=== PATIENT | male | born 1975 | race Caucasian/White ===

== ENCOUNTER 2017-10-09 18:38 | Emergency (ER) | payer OTHER, SELFPAY ==
[2017-10-09 18:50] VITALS: BP 131/84; PULSE 78; RESP 15; TEMP 36.7; O2SAT 98
[2017-10-09 19:00] VITALS: BP 131/84; PULSE 78; RESP 15; TEMP 36.7; O2SAT 98; BMI 37.3
[2017-10-09] MEDS: TET,DIPH,PERTUSS(ACELL),VAC/PF 0.5 ML SYRINGE IM (19:27)
--- NOTE | 2017-10-09 19:27 | ED_ITS ---
HPI - Wound/Laceration <JIM Jacinto - Last Filed: 10/09/17 21:54> General Chief Complaint: Wound/Laceration Stated Complaint: GRILL FELL ON R HAND,LACERATION TO 3RD DIGIT Time Seen by Provider: 10/09/17 18:58 History of Present Illness HPI narrative: 42-year-old healthy male here for complaint of laceration to the right middle finger. He was at work when he accidentally caught himself on the grill causing a laceration. He denies any other injuries or concerns. Laceration is to the dorsal aspect of the right middle finger. He states his last tetanus was approximately 5 years ago. No other concerns or complaints Onset (ago): minute(s) Related Data Home Medications Medication Instructions Recorded Confirmed No Known Home Medications 10/09/17 10/09/17 Allergies Allergy/AdvReac Type Severity Reaction Status Date / Time No Known Drug Allergies Allergy Verified 10/09/17 18:59 Review of Systems <JIM Jacinto - Last Filed: 10/09/17 21:54> Constitutional Denies chills, Denies fever(s), Denies lethargy and Denies weakness Eyes Denies change in vision, Denies eye discharge, Denies irritation and Denies loss of vision ENT Ears, Nose, Mouth, and Throat: Denies change in voice, Denies neck pain and Denies sore throat Cardiovascular Denies chest pain, Denies irregular heart rhythm, Denies lightheadedness, Denies palpitations, Denies dyspnea, Denies dyspnea on exertion and Denies orthopnea Respiratory Denies cough, Denies dyspnea, Denies dyspnea on exertion and Denies wheezing Gastrointestinal Gastrointestinal: Denies abdominal pain, Denies change in bowel habits, Denies diarrhea, Denies nausea and Denies vomiting Genitourinary Denies hematuria, Denies flank pain, Denies urinary incontinence and Denies urinary urgency Musculoskeletal Denies neck pain Comments: Laceration right middle finger Integumentary/Breasts Denies pruritus, Denies erythema, Denies rash and Denies wounds Neurologic Denies confusion, Denies loss of vision and Denies weakness Psychiatric Denies anxiety, Denies confusion, Denies depression, Denies homicidal ideation and Denies suicidal ideation Endocrine Denies palpitations Hematologic/Lymphatic Denies easy bruising Allergic/Immunologic Denies wheezing Exam <JIM Jacinto - Last Filed: 10/09/17 21:54> Initial Vital Signs Initial Vital Signs: Vital Signs Temperature 98.1 F 10/09/17 18:50 Pulse Rate 78 10/09/17 18:50 Respiratory Rate 15 10/09/17 18:50 Blood Pressure 131/84 H 10/09/17 18:50 Pulse Oximetry 98 10/09/17 18:50 Const General: cooperative and well developed Nutritional Appearance: well nourished Orientation: alert, awake, oriented x3 and not confused [facility] Mouth: oral mucosae normal and moist mucous membranes Eyes General: appearance normal, both eyes and all related structures Eyelids: eyelids normal Conjunctivae: conjunctivae normal Sclera: sclerae normal Pupils: PERRL EOM: EOM intact bilaterally Resp Effort & Inspection: normal respiratory effort, able to speak in complete sentences, no respiratory distress and no use of accessory muscles Auscultation: clear to auscultation bilaterally, no rales, no rhonchi and no wheezes Cardio Rate: regular rate Rhythm: regular rhythm Heart Sounds: no click, no gallops, no murmurs and no rubs Skin General: no rashes or lesions noted, No jaundice and No petechiae Extrem Other: 1.5 cm laceration to the dorsal aspect of the right index finger in between the PIP MCP joint distal sensation is intact. Distal range of motion is intact. Distal cap refill less than 2 sec. <Kristie Jimenez DO - Last Filed: 10/10/17 01:02> Initial Vital Signs Initial Vital Signs: Vital Signs Temperature 98.1 F 10/09/17 18:50 Pulse Rate 78 10/09/17 18:50 Respiratory Rate 15 10/09/17 18:50 Blood Pressure 131/84 H 10/09/17 18:50 Pulse Oximetry 98 10/09/17 18:50 Procedures <JIM Jacinto - Last Filed: 10/09/17 21:54> Laceration Repair Laceration 1: Site: hand (Right middle finger) Side (If applicable): right Size (cm): 1.5 Description: linear Depth: simple, single layer Local Anesthetic: lidocaine 1% Amount of anesthesia used (mL): 2 Pre-repair: wound explored and irrigated extensively Skin layer closed with: nylon Size (cm): 5-0 Number of sutures: 3 Technique: simple, interrupted Course <JIM Jacinto - Last Filed: 10/09/17 21:54> Orders Ordered: Discontinued Medications Diphtheria/Tetanus/Acell Pertussis (Adacel) 0.5 ml IM .ONCE ONE Stop: 10/09/17 19:20 Last Admin: 10/09/17 19:27 Dose: 0.5 ml Vital Signs - 8 hr 10/09/17 18:50 10/09/17 19:00 10/09/17 19:49 Temperature 98.1 F 98.1 F Pulse Rate 78 78 72 Respiratory Rate 15 15 17 Blood Pressure 131/84 H Blood Pressure [Left Arm] 127/90 H Blood Pressure [Right Arm] 131/84 H Pulse Oximetry 98 98 100 <Kristie Jimenez DO - Last Filed: 10/10/17 01:02> Orders Ordered: Discontinued Medications Diphtheria/Tetanus/Acell Pertussis (Adacel) 0.5 ml IM .ONCE ONE Stop: 10/09/17 19:20 Last Admin: 10/09/17 19:27 Dose: 0.5 ml Vital Signs - 8 hr 10/09/17 18:50 10/09/17 19:00 10/09/17 19:49 Temperature 98.1 F 98.1 F Pulse Rate 78 78 72 Respiratory Rate 15 15 17 Blood Pressure 131/84 H Blood Pressure [Left Arm] 127/90 H Blood Pressure [Right Arm] 131/84 H Pulse Oximetry 98 98 100 MDM - Wound/Laceration <JIM Jacinto - Last Filed: 10/09/17 21:54> MDM Narrative Medical decision making narrative: Laceration to right middle finger closed with 3 sutures with good wound closure obtained patient tolerated well no complications. The wound was dressed with bacitracin and dressing. Tetanus was updated in the emergency room this evening. Sutures out in 7-10 days. Over -the-counter Tylenol Motrin as needed for any discomfort. Keep wound area clean and dry for 24 hr. Dress wound daily with bacitracin and a dressing follow up with primary care provider. For any worsening symptoms return to the emergency room. Discharge Plan Departure Patient Disposition: Home, Self-Care Clinical Impression: Laceration Discharge Date/Time: 10/09/17 19:55 Interventions: ED Discharge Assessment Last Done: 06/21/18 20:08 Instructions: DI for Laceration Repair Activity Restrictions/Additional Instructions: Laceration to the right middle finger was closed with 3 sutures. Sutures to be removed in 7-10 days. Tetanus was updated in the emergency room this evening. [id number] Tylenol Motrin as needed for any discomfort. Keep wound area clean and dry for 24 hr. Dress wound daily with bacitracin and a dressing follow up with primary care provider. For any worsening symptoms return to the emergency room. Prescriptions: No Action No Known Home Medications RF: 0 Referrals: Tomi Carrington MD [Primary Care Provider] - <Kristie Jimenez DO - Last Filed: 10/10/17 01:02> Cosign ED Attending Coskarature Attestation: I was immediately available in the department for consultation. Documentation has been reviewed. I agree with assessment and plan.
[2017-10-09 19:49] VITALS: BP 127/90; PULSE 72; RESP 17; O2SAT 100
== END 2017-10-09 19:55 | disposition home or self-care (01) ==
PROVIDERS: Emergency Provider Nurse Practitioner Family; Family Provider Family Medicine; PCP Family Medicine
DX: S61.212A Laceration without foreign body of right middle finger without damage to nail, initial encounter (principal); W20.8XXA Other cause of strike by thrown, projected or falling object, initial encounter; Y99.0 Civilian activity done for income or pay
CPT/HCPCS: 12001; 90471; 99283; 90715

== ENCOUNTER 2018-02-19 23:57 | Emergency (ER) | payer OTHER, MEDICAID, SELFPAY ==
[2018-02-20 00:11] VITALS: BP 166/91; PULSE 70; RESP 16; TEMP 36.7; O2SAT 98; BMI 39.3
--- NOTE | 2018-02-20 00:11 | ED.ABDPAIN ---
HPI - Abdominal Pain General Chief Complaint: Abdominal Pain Stated Complaint: cant keep anything down stomach pain x 3 days Time Seen by Provider: 02/20/18 00:10 Source: patient Mode of arrival: ambulatory Limitations: no limitations History of Present Illness HPI narrative: Patient is a 42-year-old male who presents with abdominal pain. He says it has been ongoing for last 2 or 3 nights. He only has pain at night by the morning as he says it is gone and he is able to function throughout the day. He has been nauseated but no vomiting. He does not have any bloody stools. No fever no one else is sick at home Related Data Previous Rx's Medication Instructions Recorded ondansetron [Zofran ODT] 4 mg PO Q6-8H PRN #10 tab 02/20/18 Allergies Allergy/AdvReac Type Severity Reaction Status Date / Time No Known Drug Allergies Allergy Verified 02/20/18 00:11 Review of Systems Review of Systems GENERAL: Denies chills, fatigue, malaise, fever, sweats, travel HEENT: Denies sinus pain, ear pain, sore throat, difficulty swallowing, neck pain RESPIRATORY: Denies dyspnea, cough, wheezing, hemoptysis, sputum. CARDIOVASCULAR: Denies chest pain, palpitations, orthopnea, edema GASTROINTESTINAL: See HPI : Denies dysuria, frequency, incontinence, hematuria, urinary retention, flank pain. MUSCULOSKELETAL: Denies weakness, joint pain, or bony pain SKIN: No rash, no erythema, no pruritus NEUROLOGIC: Denies weakness, dizziness, headache, numbness, change in speech, confusion PSYCHIATRIC: No concerning psychosocial issues. 12 point review of systems is negative except for those stated above and HPI [facility] Medical History Healthy adult (Acute) Social History Smoking Status: Never smoker alcohol intake: never substance use type: does not use Exam Initial Vital Signs Initial Vital Signs: Vital Signs Temperature 98.0 F 02/20/18 00:11 Pulse Rate 70 02/20/18 00:11 Respiratory Rate 16 02/20/18 00:11 Blood Pressure 166/91 H 02/20/18 00:11 Pulse Oximetry 98 02/20/18 00:11 GENERAL: Appears uncomfortable and in pain. HEENT: Head atraumatic,EOMI, pupils reactive, face symmetric, supple no meningeal signs CARDIOVASCULAR: Regular rate and rhythm without murmurs, rubs or gallops. RESPIRATORY: Breath sounds equal bilaterally, no wheezes rales or rhonchi. ABDOMEN: Soft, tender lower abdomen left-sided head mid abdominal. : No CVA tenderness EXTREMITIES: Normal range of motion, no clubbing or edema. Neurovascularly intact NEUROLOGICAL: Alert and oriented x4.Normal gait and speech. Cranial nerves II through XII grossly intact. SKIN: Warm, dry, no laceration, no petechiae, no rashes or lesions. Course Orders Ordered: ED Orders 02/20/18 00:05 Complete Blood Count AUTO DIFF Stat Comprehensive Metabolic Panel Stat Lipase Stat 02/20/18 00:17 CT abdomen pelvis w con Stat Discontinued Medications Hydromorphone HCl (Dilaudid) 0.5 mg IV NOW ONE Stop: 02/20/18 01:17 Last Admin: 02/20/18 01:17 Dose: 0.5 mg Hydromorphone HCl (Dilaudid) 0.5 mg IV NOW ONE Stop: 02/20/18 01:18 Last Admin: 02/20/18 01:45 Dose: 0.5 mg Sodium Chloride (Normal Saline 0.9%) 1,000 mls @ 1,000 mls/hr IV CONT MELITA Last Infusion: 02/20/18 02:43 Dose: 0 mls/hr Admin: 02/20/18 00:24 Dose: 1,000 mls/hr Ketorolac Tromethamine (Toradol) 30 mg IV NOW ONE Stop: 02/20/18 00:17 Last Admin: 02/20/18 00:24 Dose: 30 mg Morphine Sulfate (Morphine) 2 mg IV NOW ONE Stop: 02/20/18 00:56 Last Admin: 02/20/18 00:56 Dose: 2 mg Ondansetron HCl (Zofran) 4 mg IV NOW ONE Stop: 02/20/18 00:24 Last Admin: 02/20/18 00:24 Dose: 4 mg Vital Signs - 8 hr 02/20/18 00:11 02/20/18 02:44 Temperature 98.0 F 98.1 F Pulse Rate 70 72 Respiratory Rate 16 16 Blood Pressure 166/91 H 145/90 H Pulse Oximetry 98 98 MDM - Abdominal Pain Lab Data Result diagrams: 02/20/18 00:05 02/20/18 00:05 Lab Results 02/20/18 02/20/18 Range/Units 00:05 00:05 WBC 15.7 H (4.5-11.0) X10^3/uL RBC 5.28 (4.5-5.9) X10^6/uL Hgb 15.7 (13.5-17.5) g/dL Hct 46.7 (41-53) % MCV 88.3 (80-100) fL MCH 29.7 (26-34) PG MCHC 33.6 (30-36) % RDW 13.6 (11.6-14.8) % Plt Count 241 (150-400) X10^3/uL Neut % (Auto) 63.0 (50-75) % Lymph % (Auto) 26.4 (25-40) % [place] % (Auto) 8.8 (3-14) % Eos % (Auto) 0.6 L (2-4) % Baso % (Auto) 1.2 (0-2) % Neut # (Auto) 9900 H (2781-3049) /uL Sodium 139 (137-145) mmol/L Potassium 3.7 (3.4-5.1) mmol/L Chloride 101 (98-107) mmol/L Carbon Dioxide 23 (22-32) mmol/L BUN 25 H (9-20) mg/dL Creatinine 0.80 (0.66-1.25) mg/dL Estimated GFR > 60.0 (>60) mL/min BUN/Creatinine Ratio 31.3 H (6-22) Glucose 128 H (70-100) mg/dL Calcium 9.1 (8.4-10.2) mg/dL Total Bilirubin 0.5 (0.2-1.3) mg/dL AST 23 (17-59) IU/L ALT 32 (21-72) IU/L Alkaline Phosphatase 42 (38-126) U/L Total Protein 7.7 (6.3-8.2) g/dL Albumin 4.6 (3.5-5.0) g/dL Globulin 3.1 (1.7-4.1) g/dL Albumin/Globulin Ratio 1.5 (1.0-2.8) Lipase 106 (23-300) U/L Imaging Data CT scan - abdomen: Radiologist's impression: septic pump truck driver report: Adamentally. Fatty infiltration of liver. No acute intra-abdominal or intrapelvic process is identified. Normal appendix. MDM Narrative Medical decision making narrative: Patient does have leukocytosis but no sign of infection. No diverticulitis or kidney stone is. He has had diarrhea the last couple of days the. He was in quite severe pain in the emergency department. He had very little relief with morphine over the 1st dose of Dilaudid. 2nd dose of Dilaudid seemed to help calm him. At this time with diarrhea and nausea likely gastroenteritis. I discussed all findings with the patient, Education has been performed regarding treatment plan, diagnosis, warning signs and symptoms and all concerns have been addressed. Verbally agree with and understood all of the above. Discharge Plan Departure Patient Disposition: Home Clinical Impression: Gastroenteritis Discharge Date/Time: 02/20/18 02:45 Interventions: ED Discharge Assessment Last Done: 02/20/18 02:44 Instructions: DI for Viral Gastroenteritis -- Adult Activity Restrictions/Additional Instructions: 1) You have been diagnosed with gastroenteritis 2) What to do: Drink frequent but small amounts of fluids. CT and blood work within normal limits. I recommend Gatorade or a Gatorade-like product, as it has small amounts of sugar and salts that improve fluid retention. 3) Take medications as directed 4) Follow up with your primary care provider in 2-3 days 5) Return to ER if you should have any new or worsening symptoms such as, unable to hold down fluids despite use of anti-nausea medications and the small volume oral rehydration strategy. Prescriptions: New ondansetron [Zofran ODT] 4 mg tablet,disintegrating 4 mg PO Q6-8H PRN (Reason: nausea and vomiting) Qty: 10 RF: 0 Referrals: Tomi Carrington MD [Primary Care Provider] -
--- NOTE | 2018-02-20 00:17 | DI.CT.S_ITS ---
PROCEDURE: CT ABDOMEN PELVIS W CON INDICATIONS: mid and left lower quadrant pain TECHNIQUE: After the administration of intravenous contrast, 5 mm thick sections acquired from the diaphragm to the symphysis. 5 mm coronal and sagittal reformats were acquired. For radiation dose reduction, the following was used: automated exposure control, adjustment of mA and/or kV according to patient size. COMPARISON: None. FINDINGS: Image quality: Excellent. ABDOMEN: Lung bases: Lung bases are clear. Heart size is normal. Solid organs: Liver is mildly enlarged in size at 28.7 cm craniocaudad, and normal in enhancement, but with an appearance suggestive of mild fatty infiltration. Gallbladder appears normal. Biliary system is non dilated. Pancreas enhances normally. Spleen is normal in size and enhancement. No adrenal nodules. Kidneys demonstrate normal size and enhancement, without hydronephrosis. Peritoneum and bowel: Bowel loops demonstrate normal wall thickness and caliber. No free fluid or air. Nodes and vessels: No retroperitoneal or mesenteric adenopathy by size criteria. Aorta and inferior vena cava are normal in size. Miscellaneous: No ventral hernias. PELVIS: Genitourinary: Bladder wall thickness is normal. Miscellaneous: No inguinal hernias or adenopathy. Bones: No suspicious bony lesions. No vertebral body compression fractures. IMPRESSION: Liver size is just above the upper limits of normal, mild generalized fatty infiltration within the liver. No ascites or varices are found. No peripancreatic edema or fluid collections are identified. Dictated by: Canelo Delgadillo M.D. on 02/20/2018 at 8:49 Approved by: Canelo Delgadillo M.D. on 02/20/2018 at 8:51
[2018-02-20] MEDS: ONDANSETRON 4 MG/2 ML INJ IV (00:24)
[2018-02-20] MEDS: KETOROLAC 60 MG/2 ML VIAL 30 MG IV (00:24)
[2018-02-20] MEDS: SODIUM CHLORIDE 0.9% 1,000 ML 1000 ML IV (00:24)
[2018-02-20 00:25] LABS: Add Manual Diff / Slide Review NO; Basophils Percent Auto 1.2 % (0-2); Eosinophils Percent Auto 0.6 % (2-4); Hematocrit 46.7 % (41-53); Hemoglobin 15.7 g/dL (13.5-17.5); Lymphocytes Percent Auto 26.4 % (25-40); Mean Corpuscular HGB Conc 33.6 % (30-36); Mean Corpuscular Hemoglobin 29.7 PG (26-34); Mean Corpuscular Volume 88.3 fL (80-100); Monocytes Percent Auto 8.8 % (3-14); Neutrophils Absolute Auto 9900 /uL (3000-5900); Platelet Count 241 X10^3/uL (150-400); Red Blood Cell Count 5.28 X10^6/uL (4.5-5.9); Red Cell Distribution Width 13.6 % (11.6-14.8); White Blood Cell Count 15.7 X10^3/uL (4.5-11.0)
[2018-02-20 00:28] LABS: Alanine Aminotransferase 32 IU/L (21-72); Albumin 4.6 g/dL (3.5-5.0); Albumin Globulin Ratio 1.5 (1.0-2.8); Alkaline Phosphatase 42 U/L (38-126); Aspartate Aminotransferase 23 IU/L (17-59); BUN Creatinine Ratio 31.3 (6-22); Bilirubin Total 0.5 mg/dL (0.2-1.3); Blood Urea Nitrogen 25 mg/dL (9-20); Calcium 9.1 mg/dL (8.4-10.2); Carbon Dioxide 23 mmol/L (22-32); Chloride 101 mmol/L (98-107); Estimated Glomerular Filt Rate > 60.0 mL/min (>60); Globulin 3.1 g/dL (1.7-4.1); Glucose 128 mg/dL (70-100); HEMOLYSIS < 15 (0-50); Lipase 106 U/L (23-300); Potassium 3.7 mmol/L (3.4-5.1); Sodium 139 mmol/L (137-145); Total Protein 7.7 g/dL (6.3-8.2)
--- NOTE | 2018-02-20 00:50 | PC.NURSE ---
Rounded on pt. Pt writhing in pain. Dr Jimenez made aware, verbal order received for 2 mg of morphine.
[2018-02-20] MEDS: MORPHINE 2 MG/ML INJ IV (00:56)
[2018-02-20] MEDS: HYDROMORPHONE 1 MG INJ 0.5 MG IV ×2 (01:17→01:45)
[2018-02-20 02:44] VITALS: BP 145/90; PULSE 72; RESP 16; TEMP 36.7; O2SAT 98
== END 2018-02-20 02:45 | disposition home or self-care (01) ==
PROVIDERS: Emergency Provider Emergency Medicine; Family Provider Family Medicine; PCP Family Medicine
DX: K52.9 Noninfective gastroenteritis and colitis, unspecified (principal)
CPT/HCPCS: 36591; 74177; 80053; 83690; 85025; 96361; 96374; 96375; 99283; 99285; J1170; J1885; J2270; J2405; Q9967

== ENCOUNTER → 2018-12-31 09:30 | Outpatient (CLI) | payer OTHER, MEDICAID, SELFPAY ==
--- NOTE | 2018-12-31 | DI.RAD.S_ITS ---
PROCEDURE: XR LUMBAR SPINE 2-3V INDICATIONS: LOWER BACK PAIN TECHNIQUE: 3 views of the lumbar spine were acquired. COMPARISON: None. FINDINGS: Bones: 5 peo-fth-amalyet vertebrae are present. There is normal bony alignment. No vertebral body compression fractures. No suspicious bony lesions. Moderate L3-L4, L4-L5 and L5-S1 degenerative disc disease. Mild L2-L3 degenerative disc disease. Mild L5-S1 facet arthropathy. Soft tissues: Overlying bowel gas pattern is normal. No suspicious soft tissue calcifications. IMPRESSION: 1. Moderate L3-L4, L4-L5 and L5-S1 degenerative disc disease. Mild L2-L3 degenerative disc disease. 2. Mild L5-S1 facet arthropathy. 3. No fracture. No acute osseous lesion. If symptoms and/or clinical suspicion for pathology persists, evaluation with MRI may be helpful for further assessment. Dictated by: Shell Shultz MD, PhD on 12/31/2018 at 13:03 Approved by: Shell Shultz MD, PhD on 12/31/2018 at 13:04
== END ==
PROVIDERS: PCP Family Medicine; Visit Provider Family Medicine
DX: M54.5 Low back pain (principal); M47.817 Spondylosis without myelopathy or radiculopathy, lumbosacral region; M51.36 Other intervertebral disc degeneration, lumbar region; M51.37 Other intervertebral disc degeneration, lumbosacral region
CPT/HCPCS: 72100

== ENCOUNTER → 2019-02-11 13:39 | Outpatient (CLI) | payer OTHER, MEDICAID, SELFPAY | PROVIDERS: PCP Family Medicine; Visit Provider Family Medicine | DX: M54.41 Lumbago with sciatica, right side (principal) | CPT/HCPCS: 95885; 95886; 95908 ==

== ENCOUNTER → 2020-09-08 09:29 | Outpatient (CLI) | payer OTHER, SELFPAY ==
[2020-09-08] MEDS: COVID-19 VACC, Ad26(JANSSEN)/PF 0.5 ML IM (09:32)
== END ==
PROVIDERS: PCP Family Medicine; Visit Provider Internal Medicine
DX: Z23 Encounter for immunization (principal)
CPT/HCPCS: 0031A; 91303

== ENCOUNTER → 2021-03-14 11:51 | Outpatient (CLI) | payer SELFPAY ==
--- NOTE | 2021-03-14 | DI.RAD.S_ITS ---
PROCEDURE: XR LUMBAR SPINE 2-3V INDICATIONS: LOW BACK PAIN TECHNIQUE: 3 views of the lumbar spine were acquired. COMPARISON: [facility], , XR LUMBAR SPINE 2-3V, 12/31/2018, 9:38. FINDINGS: Bones: 5 num-vll-ybceauv vertebrae are present. No traumatic subluxation. Mild to moderate disc height loss at L4 -S1 with facet arthrosis. No vertebral body compression fractures. No suspicious bony lesions. Soft tissues: Overlying bowel gas pattern is normal. No suspicious soft tissue calcifications. IMPRESSION: No significant interval change. Dictated by: Solis Ruiz M.D. on 03/14/2021 at 12:07 Approved by: Solis Ruiz M.D. on 03/14/2021 at 12:14
== END ==
PROVIDERS: PCP Family Medicine; Referring Provider Family Medicine; Visit Provider Family Medicine
DX: M47.816 Spondylosis without myelopathy or radiculopathy, lumbar region (principal); M47.817 Spondylosis without myelopathy or radiculopathy, lumbosacral region; M54.50 Low back pain, unspecified
CPT/HCPCS: 72100